=== PATIENT | female | born 1940 | race Caucasian/White ===

== ENCOUNTER → 2017-08-22 08:18 | Outpatient (CLI) | payer MEDICARE, SELFPAY ==
--- NOTE | 2017-08-22 | DI.ECHO.S_ITS ---
[facility]---------+ [facility] +---------+ : : [address] [place] : : : : [id number] : : : : Phone: [phone]---------+ Echocardiogram Report + + :Name: VERN TATE Study Date: 08/22/2017 Height: 62 in : :[facility] Exam Location: [facility] Weight: 107 lb : : Gender: Female BSA: 1.5 m2 : :: 1940 Age: 76 yrs BP: 138/65 mmHg: :Reason For Study: AORTIC STENOSIS : : Performed By: Alexis Oropeza : :Referring: KT HAYWOOD : + + Interpretation Summary 1. Normal left ventricular size, wall thickness and systolic function with an estimated EF of 60-65% 2. Normal right ventricular size and systolic function. The estimated RVSP is 27 mm Hg. The estimated right atrial pressure is low. 3. Aortic valve sclerosis versus mild stenosis. Mild insufficiency. When compared to the previous study, no significant change Procedure: A two-dimensional transthoracic echocardiogram with color flow and Doppler was performed. The study quality was technically good. Comparison is made with the echocardiogram of 02/12/14. The patient was in normal sinus rhythm during the exam. Left Ventricle: The left ventricle is normal in size. There is normal left ventricular wall thickness. The ejection fraction is estimated to be 60-65%. No focal wall motion abnormalities appreciated. Right Ventricle: The right ventricle is normal in size and function. Atria: The left atrium is mildly dilated. The right atrium is moderately dilated. The interatrial septum is intact with no evidence for an atrial septal defect. Mitral Valve: There is mild mitral annular calcification. There is mild mitral regurgitation. Aortic Valve: The aortic valve is trileaflet. The aortic valve is mildly calcified. The peak aortic velocity is 2.41 m/sec. The aortic valve mean gradient is 13.9 mmHg. Aortic valve sclerosis versus mild stenosis. There is mild aortic regurgitation. Tricuspid Valve: The tricuspid valve leaflets are thin and pliable. There is mild tricuspid regurgitation. The right ventricular systolic pressure is estimated at 27 mmHg assuming a right atrial pressure of 3 mm Hg. Pulmonic Valve: The pulmonic valve is not well seen, but is grossly normal. There is trace pulmonic regurgitation. Great Vessels: The aortic root is normal size. The dimensions of the ascending aorta are normal. The IVC is of normal diameter and collapses greater than 50% with a sniff. This suggests a low right atrial pressure of 3 mm Hg. Pericardium/ Pleura There is no pericardial effusion. There is no pleural effusion. MMode/2D Measurements & Calculations LVIDd: 4.0 cm LVOT diam: 2.0 cm LVIDs: 2.1 cm Ao root diam: 3.1 cm FS: 46.3 % Aortic Jxn: 2.3 cm EPSS: 0.08 cm asc Aorta Diam: 3.4 cm IVSd: 0.74 cm Ao Arch Diam (Prox Trans): 2.4 cm LVPWd: 0.68 cm LV sandoval. diameter/BSA (cm/m^2): 2.7 LV sys. diameter/BSA (cm/m^2): 1.5 LA dimension: 2.9 cm RA long axis: 4.8 cm LA A2 area: 22.1 cm2 RA area: 17.9 cm2 LA A4 area: 16.7 cm2 RA vol: 57.5 ml LA length (vol): 4.9 cm RA : 39.2 ml/m2 LA vol: 63.8 ml IVC diam: 1.7 cm LA vol index: 43.5 ml/m2 Doppler Measurements & Calculations Ao V2 max: 241.3 cm/sec LVOT Max Peter: 112.9 cm/sec Ao V2 mean: 177.7 cm/sec LV V1 max P.1 mmHg Ao max P.3 mmHg LV V1 VTI: 26.4 cm Ao mean P.9 mmHg DUDLEY(I,D): 1.6 cm2 Ao V2 VTI: 51.2 cm DUDLEY(V,D): 1.4 cm2 sev ratio: 0.51 DUDLEY indexed to BSA (cm^2/m^2): 1.1 AI P1/2t: 482.1 msec AI dec slope: 280.8 cm/sec2 MV E max peter: 91.8 cm/sec TR max peter: 243.3 cm/sec MV A max peter: 65.1 cm/sec TR max P.7 mmHg MV E/A: 1.4 PA V2 max: 80.4 cm/sec Med Peak E' Peter: 17.5 cm/sec PA V2 mean: 57.6 cm/sec E/E' med: 5.2 PA mean P.5 mmHg Lat Peak E' Peter: 7.3 cm/sec PA pr(Accel): 29.1 mmHg E/E' lat: 12.6 PA Accel Time: 0.11 sec E/e' average: 8.9 MV dec time: 0.17 sec Reading Physician:ROGERIO
== END ==
PROVIDERS: PCP Internal Medicine; Visit Provider Internal Medicine
DX: I35.0 Nonrheumatic aortic (valve) stenosis (principal)
CPT/HCPCS: 93306

== ENCOUNTER → 2017-08-31 12:20 | Outpatient (CLI) | payer MEDICARE, SELFPAY ==
--- NOTE | 2017-08-31 | DI.MG.S_ITS ---
BILATERAL DIGITAL SCREENING MAMMOGRAM 3D/2D WITH CAD: 08/31/2017 CLINICAL: Routine screening. Comparison is made to exams dated: 02/14/2014 mammogram and 01/03/2008 mammogram - [facility]. The tissue of both breasts is heterogeneously dense. This may lower the sensitivity of mammography. Current study was also evaluated with a Computer Aided Detection (CAD) system. No significant masses, calcifications, or other findings are seen in either breast. There has been no significant interval change. IMPRESSION: NEGATIVE There is no mammographic evidence of malignancy. A 1 year screening mammogram is recommended. This exam was interpreted at Station ID: [id number]. NOTE: For mammograms, a report in lay terms will be sent to the patient. Approximately 15% of breast malignancies will not be visualized mammographically. In the management of a palpable breast mass, a negative mammogram must not discourage biopsy of a clinically suspicious lesion. Electronically Signed By: Jc ying/david:08/31/2017 16:17:04 letter sent: Normal Exam ACR BI-RADS Category 1: Negative 3341F
== END ==
PROVIDERS: PCP Internal Medicine; Visit Provider Internal Medicine
DX: Z12.31 Encounter for screening mammogram for malignant neoplasm of breast (principal); M85.851 Other specified disorders of bone density and structure, right thigh
CPT/HCPCS: 77063; 77067; 77080

== ENCOUNTER 2017-11-14 11:50 | Day surgery (SDC) | payer MEDICARE, SELFPAY ==
[2017-11-14] VITALS (9 sets, daily range): BP systolic 90–139; BP diastolic 53–75; PULSE 64–74; RESP 11–16; TEMP 36.5–36.9; O2SAT 97–100; BMI 19.5
[2017-11-14] MEDS: SODIUM CHLORIDE 0.9% 1,000 ML 200 ML IV (12:41)
--- NOTE | 2017-11-14 13:30 | PM.HP.1 ---
History of Present Illness Date Patient Seen: 11/14/17 Time Patient Seen: 13:31 Chief complaint: colonoscopy 25332 Narrative: Very pleasant 77-year-old lady who presents today for screening colonoscopy. Her last colonoscopy was in 2003. She has no personal or family history of colon polyps or cancer. She denies any problems or symptoms related to the function of her GI tract. Patient History Family & Social History Family History: Reviewed 11/14/17 by Kenna Noguera MD Social History: household members spouse Meds Home Medications Medication Instructions Recorded Confirmed Type aspirin [Aspir-81] 81 mg PO DAILY 11/14/17 11/14/17 History lutein-zeaxanthin See Label Instructions .ROUTE 11/14/17 11/14/17 History .COMPLEX Allergies Allergy/AdvReac Type Severity Reaction Status Date / Time codeine Allergy Unknown Verified 11/14/17 12:15 latex Allergy Verified 11/14/17 12:15 Penicillins Allergy Verified 11/14/17 12:15 Review of Systems Review of Systems All systems reviewed & are unremarkable except as noted in HPI and below Exam Vital Signs (past 8 hours): - 11/14/17 12:30 Temperature 98.4 F Pulse Rate 70 Respiratory Rate 16 Blood Pressure 139/75 H Pulse Oximetry 100 Oxygen Delivery Method Room Air Narrative Exam Narrative: Very pleasant and well-appearing lady in no distress HEENT: Normocephalic and atraumatic, pupils equal round reactive to light accommodation with anicteric sclera. Lungs: Clear to auscultation bilaterally Heart: Regular rate and rhythm without murmur rub or gallop Abdomen: Soft, nontender, active bowel sounds Extremities: Warm and well perfused without edema Assessment & Plan Plan: Assessment/Plan Narrative: Very pleasant and healthy 77-year-old lady presenting for screening colonoscopy. We discussed the risks and benefits of the procedure the patient expressed a desire to completed today.
[2017-11-14] MEDS: fentaNYL 250 MCG/5 ML INJ IV (13:42)
[2017-11-14] MEDS: MIDAZOLAM 5 MG/5 ML VIAL IV (13:43)
--- NOTE | 2017-11-14 14:12 | PM.OP.1 ---
Operative Date/Time/Diagnoses Date of procedure: 11/14/17 Time of procedure: 14:13 Pre-op diagnosis: Screening Post-op diagnosis: same Procedure & Clinicians Procedure: Colonoscopy to the cecum Same procedure as scheduled: Yes Indications: Last colonoscopy 2003 Surgeon: Kenna Noguera Anesthesia Type: Sedation (Versed 8 mg; fentanyl 200 mcg) Operative Notes Findings: 1. Excellent prep 2. Tortuous colon 3. No polyps or mass lesions 4. No AV malformations 5. Sigmoid diverticulosis limited to the sigmoid region 6. Grade 1-2 internal hemorrhoids 7. Essentially normal colonoscopy for age Closure Type: not applicable Specimen(s): none sent Procedure in detail: After obtaining informed consent, the patient was brought to the GI suite and placed in the left lateral decubitus position on the examination table. After placement of appropriate monitors, the patient was given incremental doses of Versed and Fentanyl until an appropriate level of sedation was achieved. A time out was held per SCOAP protocol. A digital rectal examination was performed and did not reveal any masses or obstructing lesions. The colonoscope was gently passed into the patient's anus and the entire colon navigated to the level of the cecum with minimal difficulty. Once in the cecum, the scope was withdrawn being sure to go before and beyond all mucosal folds and prominences and get an excellent examination. The findings are noted above. At the level of the rectal vault, the scope was retroflexed and the internal anal canal was examined. The scope was straightened and air aspirated from the colon. The instrument was removed from the patient's body and the procedure was concluded. The patient was allowed to awaken from sedation without difficulty and taken to the post-anesthesia care unit in good condition. Total sedation time 30 min Total withdrawal time 13 min Condition: stable Disposition: PACU Plan for aftercare: 1. Discharge to home 2. Plan for next colonoscopy on a as needed basis only. I do not recommend additional screening studies
== END 2017-11-14 15:16 | disposition home or self-care (01) ==
PROVIDERS: PCP Internal Medicine; Visit Provider Surgery
PROC: 0DJD8ZZ Inspection of Lower Intestinal Tract, Via Natural or Artificial Opening Endoscopic (ICD-10-PCS; CPT 45378; principal; 2017-11-14 13:00)
DX: Z12.11 Encounter for screening for malignant neoplasm of colon (principal); K57.30 Diverticulosis of large intestine without perforation or abscess without bleeding; K64.1 Second degree hemorrhoids
CPT/HCPCS: 45378; 99152; 99153; J2250; J3010

== ENCOUNTER → 2019-09-14 15:09 | Outpatient (CLI) | payer MEDICARE, SELFPAY ==
--- NOTE | 2019-09-14 15:11 | DI.MG.S_ITS ---
BILATERAL DIGITAL SCREENING MAMMOGRAM 3D/2D WITH CAD: 09/14/2019 CLINICAL: Routine screening. Comparison is made to exams dated: 08/31/2017 mammogram, 02/14/2014 mammogram, and 01/03/2008 mammogram - [facility]. The tissue of both breasts is heterogeneously dense. This may lower the sensitivity of mammography. Current study was also evaluated with a Computer Aided Detection (CAD) system. There is a possible 0.5 cm oval asymmetry in the left breast posterior depth lateral region seen on the craniocaudal view only. This is more prominent. No other significant masses, calcifications, or other findings are seen in either breast. IMPRESSION: INCOMPLETE: NEEDS ADDITIONAL IMAGING EVALUATION The possible 0.5 cm oval asymmetry in the left breast is indeterminate. Additional views with possible ultrasound are recommended. This exam was interpreted at Station ID: [id number]. NOTE: For mammograms, a report in lay terms will be sent to the patient. Approximately 15% of breast malignancies will not be visualized mammographically. In the management of a palpable breast mass, a negative mammogram must not discourage biopsy of a clinically suspicious lesion. Electronically Signed By: Edu mcnair/david:09/16/2019 08:13:49 letter sent: Additional Imaging Needed ACR BI-RADS Category 0: Incomplete 3340F
== END ==
PROVIDERS: PCP Internal Medicine; Referring Provider Internal Medicine; Visit Provider Internal Medicine
DX: Z12.31 Encounter for screening mammogram for malignant neoplasm of breast (principal)
CPT/HCPCS: 77063; 77067

== ENCOUNTER → 2019-10-04 10:20 | Outpatient (CLI) | payer MEDICARE, SELFPAY ==
[2019-10-04 12:02] LABS: Alanine Aminotransferase 24 IU/L (<35); Albumin 4.2 g/dL (3.5-5.0); Albumin Globulin Ratio 1.8 (1.0-2.8); Alkaline Phosphatase 62 U/L (38-126); Aspartate Aminotransferase 49 IU/L (14-36); BUN Creatinine Ratio 21.7 (6-22); Blood Urea Nitrogen 13 mg/dL (7-17); Calcium 9.6 mg/dL (8.4-10.2); Carbon Dioxide 25 mmol/L (22-32); Chloride 103 mmol/L (98-107); Cholesterol 257 mg/dL (140-199); Estimated Glomerular Filt Rate > 60.0 mL/min (>60); Globulin 2.4 g/dL (1.7-4.1); Glucose 84 mg/dL (80-110); HDL Cholesterol 80 mg/dL (40-60); HEMOLYSIS 24 (0-50); LDL Cholesterol Calculated 158 mg/dL (<100); Potassium 3.9 mmol/L (3.4-5.1); Sodium 135 mmol/L (137-145); Total Protein 6.6 g/dL (6.3-8.2); Triglycerides 94 mg/dL (35-150)
== END ==
PROVIDERS: PCP Internal Medicine; Referring Provider Internal Medicine; Visit Provider Internal Medicine
DX: M85.80 Other specified disorders of bone density and structure, unspecified site (principal); E78.5 Hyperlipidemia, unspecified
CPT/HCPCS: 36415; 80053; 80061

== ENCOUNTER → 2019-10-15 09:26 | Outpatient (CLI) | payer MEDICARE, SELFPAY ==
--- NOTE | 2019-10-15 | DI.US.S_ITS ---
ULTRASOUND OF LEFT BREAST: 10/15/2019 CLINICAL: Patient returns today to evaluate an architectural distortion in the left breast. Comparison is made to exams dated: 08/31/2017 mammogram, 09/14/2019 mammogram, and 10/15/2019 mammogram - [facility]. Color flow ultrasound of the left breast was performed on the areas of interest. Davis scale images of the real-time examination were reviewed. There is a benign normal lymph node in the left breast at 2 o'clock posterior depth. This correlates with mammography findings. IMPRESSION: BENIGN There is no sonographic evidence of malignancy. The normal lymph node in the left breast is benign. Return to annual mammogram screening schedule is recommended. This exam was interpreted at Station ID: [id number]. Electronically Signed By: Lynn reyes/:10/16/2019 16:37:16 letter sent: Normal Exam Ultrasound BI-RADS: 2 Benign
--- NOTE | 2019-10-15 | DI.MG.S_ITS ---
UNILATERAL LEFT DIGITAL DIAGNOSTIC MAMMOGRAM 3D/2D WITH ADDITIONAL VIEWS: 10/15/2019 CLINICAL: Additional evaluation requested from prior study. Comparison is made to exams dated: 09/14/2019 mammogram, 08/31/2017 mammogram, and 02/14/2014 mammogram - [facility]. The tissue of left breast is heterogeneously dense. This may lower the sensitivity of mammography. The asymmetry in the left breast posterior depth lateral region seen on the craniocaudal view only is seen in additional views. No other significant masses or calcifications are seen in the breast. IMPRESSION: INCOMPLETE: NEEDS ADDITIONAL IMAGING EVALUATION The asymmetry in the left breast likely represents a lymph node and is indeterminate. A targeted ultrasound of the left breast is recommended and will be performed immediately following this exam. This exam was interpreted at Station ID: [id number]. NOTE: For mammograms, a report in lay terms will be sent to the patient. Approximately 15% of breast malignancies will not be visualized mammographically. In the management of a palpable breast mass, a negative mammogram must not discourage biopsy of a clinically suspicious lesion. Electronically Signed By: Lynn reyes/:10/16/2019 16:36:19 ACR BI-RADS Category 0: Incomplete 3340F
== END ==
PROVIDERS: PCP Internal Medicine; Referring Provider Internal Medicine; Visit Provider Internal Medicine
DX: R92.8 Other abnormal and inconclusive findings on diagnostic imaging of breast (principal); N64.89 Other specified disorders of breast
CPT/HCPCS: 76642; 77065; G0279

== ENCOUNTER → 2021-02-12 14:35 | Outpatient (CLI) | payer MEDICARE, SELFPAY ==
--- NOTE | 2021-02-12 | DI.MG.S_ITS ---
BILATERAL DIGITAL SCREENING MAMMOGRAM 3D/2D WITH CAD: 02/12/2021 CLINICAL: Routine screening. Comparison is made to exams dated: 09/14/2019 mammogram, 08/31/2017 mammogram, and 10/15/2019 mammogram - [facility]. The tissue of both breasts is heterogeneously dense. This may lower the sensitivity of mammography. Current study was also evaluated with a Computer Aided Detection (CAD) system. No significant masses, calcifications, or other findings are seen in either breast. There has been no significant interval change. IMPRESSION: NEGATIVE There is no mammographic evidence of malignancy. A 1 year screening mammogram is recommended. This exam was interpreted at Station ID: [id number]. NOTE: For mammograms, a report in lay terms will be sent to the patient. Approximately 15% of breast malignancies will not be visualized mammographically. In the management of a palpable breast mass, a negative mammogram must not discourage biopsy of a clinically suspicious lesion. Electronically Signed By: Tomasz beavers/david:02/12/2021 15:34:10 letter sent: Normal Exam ACR BI-RADS Category 1: Negative 3341F
== END ==
PROVIDERS: PCP Internal Medicine; Referring Provider Internal Medicine; Visit Provider Internal Medicine
DX: Z12.31 Encounter for screening mammogram for malignant neoplasm of breast (principal); M85.852 Other specified disorders of bone density and structure, left thigh
CPT/HCPCS: 77063; 77067; 77080

== ENCOUNTER → 2022-02-14 10:14 | Outpatient (CLI) | payer MEDICARE, SELFPAY ==
--- NOTE | 2022-02-14 | DI.MG.S_ITS ---
BILATERAL DIGITAL SCREENING MAMMOGRAM 3D/2D WITH CAD: 02/14/2022 CLINICAL: Routine screening. Comparison is made to exams dated: 02/12/2021 mammogram, 10/15/2019 mammogram, 09/14/2019 mammogram, and 02/14/2014 mammogram - [facility]. Both breasts are heterogeneously dense, which may obscure small masses (category c / 51-75% glandular tissue). Current study was also evaluated with a Computer Aided Detection (CAD) system. There are benign vascular calcifications in the right breast. No significant masses, calcifications, or other findings are seen in either breast. There has been no significant interval change. IMPRESSION: BENIGN There is no mammographic evidence of malignancy. A 1 year screening mammogram is recommended. Based on the Tyrer Cuzick model (a risk assessment model) the patient's lifetime risk is 3.0% and her 10 year risk is 0.0%. According to the ACR, ACS, and NCCN guidelines, an annual breast MRI exam along with mammogram is recommended if the patient's lifetime risk is 20% or greater. This exam was interpreted at Station ID: [id number]. NOTE: For mammograms, a report in lay terms will be sent to the patient. Approximately 15% of breast malignancies will not be visualized mammographically. In the management of a palpable breast mass, a negative mammogram must not discourage biopsy of a clinically suspicious lesion. Electronically Signed By: Naresh mcclain/david:02/14/2022 14:32:28 letter sent: Normal Exam ACR BI-RADS Category 2: Benign Finding(s) 3342F
--- NOTE | 2022-02-14 | DI.ECHO.S_ITS ---
[place] +---------+ Hospital +---------+ : : [address] [place] : : : : [id number] : : : : Phone: [phone] : [phone] +---------+ Echocardiogram Report + + :Name: VERN TTAE Study Date: 02/14/2022 Height: 63 in : :[facility] ReadingLocation: Weight: 103 lb : : Gender: Female BSA: 1.5 m2 : :: 1940 Age: 81 yrs BP: 129/65 mmHg: :Reason For Study: Aortic valve stenosis : :Ordering Physician: CHASTITY : :KT Performed By: Jeremy Alvares : :Referring: KT HAYWOOD : + + Interpretation Summary The ejection fraction is estimated to be 60-65%. Diastolic function could not be accurately assessed due to contradictory data. The right ventricle is normal in size and function. The left atrium is mildly dilated. There is mild mitral regurgitation. There is mild aortic stenosis. There is mild aortic regurgitation. There is trace tricuspid regurgitation. Pulmonary artery pressures cannot be estimated because of the lack of a measurable TR jet velocity. Procedure: A two-dimensional transthoracic echocardiogram with color flow and Doppler was performed. The study quality was technically adequate. Comparison is made with the echocardiogram of 08/22/2017. The patient was in normal sinus rhythm during the exam. Left Ventricle: The left ventricle is normal in size and wall thickness. Left ventricular systolic function is normal. The ejection fraction is estimated to be 60-65%. There are no focal wall motion abnormalities. Diastolic function could not be accurately assessed due to contradictory data. Right Ventricle: The right ventricle is normal in size and function. Atria: The left atrium is mildly dilated. Right atrial size is normal. The interatrial septum grossly appears intact with no obvious evidence for an atrial septal defect. Mitral Valve: There is mild mitral annular calcification. There is mild mitral regurgitation. Aortic Valve: The aortic valve is moderately calcified. There is mild aortic stenosis. The aortic valve mean gradient is 15 mmHg. The peak aortic velocity is 2.5 m/sec. The calculated aortic valve area is 1.5 cm2. There is mild aortic regurgitation. Tricuspid Valve: The tricuspid valve is normal in structure and function. There is trace tricuspid regurgitation. Pulmonary artery pressures cannot be estimated because of the lack of a measurable TR jet velocity. Pulmonic Valve: The pulmonic valve is not well seen, but is grossly normal. There is trace pulmonic regurgitation. Great Vessels: The aortic root is normal size. The dimensions of the ascending aorta are normal. The IVC is of normal diameter and collapses greater than 50% with a sniff. This suggests a low right atrial pressure of 3 mm Hg. Pericardium/ Pleura There is no pericardial effusion. There is no pleural effusion. MMode/2D Measurements & Calculations LVIDd: 4.2 cm LVOT diam: 2.0 cm LVIDs: 2.6 cm Ao root diam: 2.9 cm FS: 38.1 % asc Aorta Diam: 3.2 cm IVSd: 0.70 cm LVPWd: 0.70 cm LV sandoval. diameter/BSA (cm/m^2): 2.9 LV sys. diameter/BSA (cm/m^2): 1.8 LA dimension: 3.1 cm RA area: 13.1 cm2 LA A2 area: 20.8 cm2 IVC diam: 1.8 cm LA A4 area: 18.4 cm2 LA length (vol): 6.0 cm LA vol: 54.1 ml LA vol index: 37.1 ml/m2 TAPSE_phl: 2.7 cm Doppler Measurements & Calculations Ao V2 max: 250.0 cm/sec LVOT Max Peter: 123.0 cm/sec Ao V2 mean: 186.0 cm/sec LV V1 max P.1 mmHg Ao max P.0 mmHg LV V1 VTI: 26.9 cm Ao mean P.0 mmHg DUDLEY(I,D): 1.5 cm2 Ao V2 VTI: 56.4 cm DUDLEY(V,D): 1.5 cm2 sev ratio: 0.48 DUDLEY indexed to BSA (cm^2/m^2): 1.0 AI P1/2t: 349.6 msec AI dec slope: 372.0 cm/sec2 MV E max peter: 103.0 cm/sec TR max peter: 239.0 cm/sec MV A max peter: 79.7 cm/sec TR max P.8 mmHg MV E/A: 1.3 Med Peak E' Peter: 7.9 cm/sec E/E' med: 13.0 Lat Peak E' Peter: 7.6 cm/sec E/E' lat: 13.5 E/e' average: 13.2 MV dec time: 0.21 sec SV(LVOT): 84.5 ml AV P1/2t-pr_phl: 349.0 msec AV VR_phl: 0.49 DUDLEY(VTI)/BSA_phl: 1.0 MV P1/2t-pr_phl: 61.0 msec Reading Physician:12:22 PM
== END ==
PROVIDERS: PCP Internal Medicine; Referring Provider Internal Medicine; Visit Provider Internal Medicine
DX: Z12.31 Encounter for screening mammogram for malignant neoplasm of breast (principal); I08.0 Rheumatic disorders of both mitral and aortic valves
CPT/HCPCS: 77063; 77067; 93306

== ENCOUNTER → 2023-02-14 11:47 | Outpatient (CLI) | payer MEDICARE, SELFPAY ==
--- NOTE | 2023-02-14 | DI.ECHO.S_ITS ---
[place] +---------+ Hospital +---------+ : : [address] [place] : : : : [id number] : : : : Phone: [phone] +---------+ Echocardiogram Report + + :Name: VERN TATE Study Date: 02/14/2023 Height: 62 in : :[facility] ReadingLocation: Weight: 105 lb : : Gender: Female BSA: 1.5 m2 : :: 1940 Age: 82 yrs BP: 128/68 mmHg: :Reason For Study: AORTIC VALVE STENOSIS : :Ordering Physician: CHASTITY, : :KT Performed By: Slime Draper : :Referring: KT HAYWOOD : + + Interpretation Summary Normal left ventricle size with ejection fraction 60-65%. The left atrium is moderately dilated. The right atrium is mildly dilated. Mild aortic stenosis. Mild to moderate aortic regurgitation. Mild mitral annular calcification. Mild mitral regurgitation. Mild tricuspid regurgitation. Comparison is made with the echocardiogram of 02/14/2022, aortic regurgitation has worsen slightly. Procedure: A two-dimensional transthoracic echocardiogram with color flow and Doppler was performed. The study quality was technically adequate. Comparison is made with the echocardiogram of 02/14/2022. The patient was in sinus rhythm with heart rates between 55-67 bpm during the exam. Left Ventricle: The left ventricle is normal in size. Proximal septal thickening is noted. The ejection fraction is estimated to be 60-65%. There are no focal wall motion abnormalities. Right Ventricle: The right ventricle is normal in size and function. Atria: The left atrium is moderately dilated. The right atrium is mildly dilated. There is no Doppler evidence for an interatrial shunt. Mitral Valve: There is mild mitral annular calcification. The mitral valve leaflets appear moderately thickened, but open well. There is mild mitral regurgitation. Aortic Valve: The aortic valve is trileaflet. The aortic valve is moderately calcified. There is mild aortic stenosis. The peak aortic velocity is 2.6 m/sec. The aortic valve mean gradient is 17 mmHg. The calculated aortic valve area is 1.3 cm2. There is mild to moderate aortic regurgitation. Tricuspid Valve: The tricuspid valve is normal in structure and function. There is mild tricuspid regurgitation. The right ventricular systolic pressure is estimated to be at least 24 mmHg based on an estimated right atrial pressure of 3 mm Hg. Pulmonic Valve: The pulmonic valve is not well visualized. There is mild pulmonic regurgitation. Great Vessels: The aortic root is normal size. The dimensions of the ascending aorta are normal. The IVC is of normal diameter and collapses greater than 50% with a sniff. This suggests a low right atrial pressure of 3 mm Hg. Pericardium/ Pleura There is no pericardial effusion. There is no pleural effusion. MMode/2D Measurements & Calculations LVIDd: 4.1 cm LVOT diam: 2.0 cm LVIDs: 2.8 cm Ao root diam: 3.1 cm FS: 31.8 % asc Aorta Diam: 3.3 cm IVSd: 0.63 cm Ao Arch Diam (Prox Trans): 1.8 cm LVPWd: 0.79 cm LV sandoval. diameter/BSA (cm/m^2): 2.8 LV sys. diameter/BSA (cm/m^2): 1.9 LA A2 area: 20.7 cm2 RA long axis: 4.8 cm LA A4 area: 20.0 cm2 RA area: 17.8 cm2 LA length (vol): 5.3 cm RA vol: 56.2 ml LA vol: 66.0 ml RA : 38.7 ml/m2 LA vol index: 45.4 ml/m2 IVC diam: 1.9 cm RVD1 (basal): 3.7 cm RVD2 (mid): 2.7 cm TAPSE: 2.7 cm Doppler Measurements & Calculations Ao V2 max: 255.8 cm/sec LVOT Max Peter: 107.2 cm/sec Ao V2 mean: 202.1 cm/sec LV V1 max P.6 mmHg Ao max P.1 mmHg LV V1 VTI: 26.3 cm Ao mean P.1 mmHg DUDLEY(I,D): 1.4 cm2 Ao V2 VTI: 58.2 cm DUDLEY(V,D): 1.3 cm2 sev ratio: 0.45 DUDLEY indexed to BSA (cm^2/m^2): 0.93 AI P1/2t: 483.5 msec AI dec slope: 258.0 cm/sec2 MV E max peter: 98.0 cm/sec TR max peter: 226.3 cm/sec MV A max peter: 48.3 cm/sec TR max P.5 mmHg MV E/A: 2.0 PA V2 max: 84.9 cm/sec Med Peak E' Peter: 8.2 cm/sec PA V2 mean: 60.2 cm/sec E/E' med: 11.9 PA mean P.6 mmHg Lat Peak E' Peter: 6.9 cm/sec PA pr(Accel): 27.6 mmHg E/E' lat: 14.2 E/e' average: 13.1 MV dec time: 0.19 sec SV(LVOT): 79.1 ml Electronically signed by: Nasrin Garcia on Reading Physician:02/14/2023 01:47 PM
--- NOTE | 2023-02-14 | DI.RAD.S_ITS ---
Bone Density Report Name: VERN TATE Age: 82 Sex: Female Ethnicity: White Date of : 1940 Indication: osteopenia; parental hip fracture; Referring Provider: KT HAYWOOD Study: Bone densitometry was performed. Exam Date: February 14, 2023 Accession number: [id number] Bone Density: Region BMD T-score Z-score Classification AP Spine(L1, L3, L4) 0.785 -2.4 0.3 Osteopenia Femoral Neck (Left) 0.596 -2.3 0.0 Osteopenia Total Hip (Left) 0.731 -1.7 0.3 Osteopenia Femoral Neck (Right) 0.587 -2.4 0.0 Osteopenia Total Hip (Right) 0.709 -1.9 0.2 Osteopenia Total Hip Mean 0.720 -1.8 0.3 Osteopenia World Health Organization criteria for BMD impression classify patients as: Normal (T-score at or above -1.0), Osteopenia (T-score between -1.0 and -2.5), or Osteoporosis (T-score at or below -2.5). 10-year Fracture Risk(1): Major Osteoporotic Fracture 29% Hip Fracture 20% Reported Risk Factors: [place] (), Neck BMD=0.587, BMI=19.2, parental fracture (1) FRAX(R) Version 3.08. Fracture probability calculated for an untreated patient. Fracture probability may be lower if the patient has received treatment. Previous Exams: -- Region Exam Age BMD T-score BMD Change BMD Change Date g/cm2 vs Baseline vs Previous -- AP Spine (L1,L3-L4) 02/14/2023 82 0.785 -2.4 -0.115 (-12.8%)# -0.056 (-6.6%)# 02/12/2021 80 0.841 -1.9 -0.059 (-6.6%)* -0.059 (-6.6%)* 08/31/2017 76 0.900 -1.4 Total Hip(Left) 02/14/2023 82 0.731 -1.7 -0.029 (-3.9%)# -0.006 (-0.9%)# 02/12/2021 80 0.737 -1.7 -0.023 (-3.0%) -0.023 (-3.0%) 08/31/2017 76 0.760 -1.5 Total Hip(Right) 02/14/2023 82 0.709 -1.9 -0.013 (-1.7%)# 0.036 (5.3%)# 02/12/2021 80 0.673 -2.2 -0.048 (-6.7%)* -0.048 (-6.7%)* 08/31/2017 76 0.722 -1.8 -- *Denotes significance at 95% confidence level, LSC for AP Spine = 0.022 g/cm2, LSC for Total Hip = 0.027 g/cm2 Rate of change results reflect vertebral levels common to all scans # Denotes dissimilar scan types or analysis methods Impression: The patient has low bone mass, based on the Total Spine T-score. The patient has an estimated ten-year risk of hip fracture of 20% and an estimated ten-year risk of major fracture of 29%, based on the WHO FRAX algorithm. The patient has risk factors, including: parental hip fracture. No significant bone loss was observed. Discussion: BONE DENSITY IS LOW AT ONE OR MORE SKELETAL SITES. THE PATIENT'S BMD AND CLINICAL RISK FACTORS CONTRIBUTE TO THIS PATIENT'S HIGH RISK OF FRACTURE. This patient's lowest T-score is low at one or more skeletal sites. It meets the World Health Organization's (WHO) criteria for low bone mass (T-score between -1.0 and -2.5). The patient's 10-year risk of hip fracture and 10 year risk of a major osteoporotic fracture as calculated by FRAX exceeds the threshold where pharmacological therapy is recommended by the National Osteoporosis Foundation (NOF). However, all treatment decisions require clinical judgment and consideration of individual patient factors, including patient preferences, comorbidities, previous drug use, risk factors not captured in the FRAX model (e.g., frailty, falls, vitamin D deficiency, increased bone turnover, interval significant decline in bone density) and possible under or overestimation of fracture risk by FRAX. The patient should follow a healthful lifestyle (good nutrition with adequate calcium and vitamin D, and appropriate weight-bearing exercise). Follow-Up: Consider a repeat BMD and Vertebral Fracture Assessment (VFA) exam in 2 years or sooner if medically necessary, to reassess this patient's status. Reported by: NAOMI PHIPPS M.D. on 02/14/2023 12:11:00 PM.
== END ==
PROVIDERS: PCP Internal Medicine; Referring Provider Internal Medicine; Visit Provider Internal Medicine
DX: M85.88 Other specified disorders of bone density and structure, other site (principal); I08.3 Combined rheumatic disorders of mitral, aortic and tricuspid valves; Z78.0 Asymptomatic menopausal state
CPT/HCPCS: 77080; 93306

== ENCOUNTER → 2024-12-30 12:55 | Outpatient (CLI) | payer MEDICARE, SELFPAY ==
--- NOTE | 2024-12-30 13:01 | DI.RAD.S_ITS ---
PROCEDURE: XR THORACIC SPINE 2V INDICATIONS: BACK PAIN TECHNIQUE: 3 views of the thoracic spine were acquired. COMPARISON: None. FINDINGS: Thoracic spine curvature and alignment: Slight rightward curve appreciated. Bones: Mild compression fractures throughout the thoracic spine are likely chronic due either to osteoporosis and/or chronic Scheuermann's disease from disc degeneration. 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 Dictated by: Jose Alberto Weaver M.D. on 12/31/2024 at 7:07 Approved by: Jose Alberto Weaver M.D. on 12/31/2024 at 7:08
== END ==
LOC: RAD 12:58
PROVIDERS: PCP Internal Medicine; Referring Provider Internal Medicine; Visit Provider Internal Medicine
DX: M48.54XA Collapsed vertebra, not elsewhere classified, thoracic region, initial encounter for fracture (principal); M51.34 Other intervertebral disc degeneration, thoracic region
CPT/HCPCS: 72070